=== PATIENT | female | born 1975 | race African-American/Black ===

== ENCOUNTER 2017-03-16 01:56 | Emergency (ER) | payer OTHER ==
[~2017-03-16] VITALS: Ht 167.6 cm; Wt 68.0 kg
[2017-03-16] MEDS ORDERED: NAPROSYN500 MG PO (03:58)
[2017-03-16] MEDS ORDERED: TRAMADOL 50 MG50 MG PO (03:58)
[2017-03-16 07:58] VITALS: BP 123/93
== END 2017-03-16 08:18 | disposition home or self-care (01) ==
LOC: ER 01:56
DX: S03.42XA Sprain of jaw, left side, initial encounter (principal); S40.022A Contusion of left upper arm, initial encounter; Z86.11 Personal history of tuberculosis; F17.210 Nicotine dependence, cigarettes, uncomplicated; F10.99 Alcohol use, unspecified with unspecified alcohol-induced disorder; Z88.6 Allergy status to analgesic agent; Z88.8 Allergy status to other drugs, medicaments and biological substances; Y04.2XXA Assault by strike against or bumped into by another person, initial encounter; Y93.89 Activity, other specified; Y92.89 Other specified places as the place of occurrence of the external cause; Y99.8 Other external cause status